=== PATIENT | male | born 1985 | race Caucasian/White ===

== ENCOUNTER 2024-08-20 08:57 | Emergency (ER) | payer OTHER ==
[~2024-08-20] VITALS: Ht 180.3 cm; Wt 94.1 kg
[2024-08-20] MEDS ORDERED: GABA-284 PO (09:14)
[2024-08-20] MEDS: PERCOCET 5MG/325MG TAB PO ONE (10:53)
[2024-08-20] MEDS: UNRESOLVED CLARIFICATION ENTRY XX STA (11:03)
[2024-08-20] MEDS ORDERED: METH-1164 PO (11:57)
[2024-08-20 12:06] VITALS: BP 144/88; TEMP 98.1; O2SAT 96
== END 2024-08-20 12:07 | disposition home or self-care (01) ==
LOC: M ED 08:57
DX: S29.011A Strain of muscle and tendon of front wall of thorax, initial encounter (principal); Y92.39 Other specified sports and athletic area as the place of occurrence of the external cause; Y93.9 Activity, unspecified; Y99.9 Unspecified external cause status; Z91.048 Other nonmedicinal substance allergy status; Z79.899 Other long term (current) drug therapy

== ENCOUNTER → 2024-08-21 | Outpatient (CLI) | payer OTHER ==
[~2024-08-21] MED LIST: GABA-284 PO; METH-1164 PO
== END ==
LOC: M PLAIMG 08:38
PROVIDERS: ATTEND Physician Assistant
DX: S29.011A Strain of muscle and tendon of front wall of thorax, initial encounter (principal); W18.30XA Fall on same level, unspecified, initial encounter; Y92.009 Unspecified place in unspecified non-institutional (private) residence as the place of occurrence of the external cause

== ENCOUNTER 2024-09-25 06:07 | Day surgery (SDC) | payer OTHER ==
[~2024-09-25] VITALS: Ht 180.3 cm; Wt 91.2 kg
[~2024-09-25 06:07] MED LIST changes: +ACET500T15 PO; +MOTR200T44 PO; +NEUR100C PO; +ROPIvacaine 0.5% 30ML VIAL PN ONE
[2024-09-25] MEDS ORDERED: NS 1,000 ML IV SCH (06:25)
[2024-09-25] MEDS ORDERED: ROPIvacaine 0.5% 30ML VIAL PN ONE (07:20)
[2024-09-25] MEDS ORDERED: propofoL 200 MG/20 ML VIAL As Ordered ONE (07:29)
[2024-09-25] MEDS ORDERED: fentaNYL 100 MCG/2 ML INJECTION As Ordered ONE (07:29)
[2024-09-25] MEDS ORDERED: MIDAZOLAM INJ 2MG/2ML VIAL As Ordered ONE (07:29)
[2024-09-25] MEDS ORDERED: ROCURONIUM BROMIDE 50MG/5ML VIAL As Ordered ONE (07:29)
[2024-09-25] MEDS ORDERED: ONDANSETRON 4MG 2ML VIAL As Ordered ONE (07:29)
[2024-09-25] MEDS ORDERED: dexmedeTOMIDine (4MCG/ML)200MCG/50ML BTL (PRECEDEX) As Ordered ONE (07:37)
[2024-09-25] MEDS: ceFAZolin SOD 2 GM in IV 1 EA IV ONE (07:55)
[2024-09-25] MEDS: TRANEXAMIC ACID 100 MG/ML 10ML VIAL IV ONE (08:00)
[2024-09-25] MEDS ORDERED: ACETAMINOPHEN 1000MG 100ML IV BAG As Ordered ONE (08:13)
[2024-09-25] MEDS ORDERED: PHENYLephrine 500MCG 5ML (100MCG/ML) SYRINGE As Ordered ONE (08:28)
[2024-09-25] MEDS ORDERED: ePHEDrine SULFATE 25 MG/5 ML(5MG/ML) SYRINGE As Ordered ONE (08:35)
[2024-09-25] MEDS ORDERED: HYDROmorphone HCL 2MG/ML 1ML VIAL As Ordered ONE (09:16)
[2024-09-25] MEDS ORDERED: SUGAMMADEX SODIUM 500 MG/5 ML VIAL (BRIDION) As Ordered ONE (09:20)
[2024-09-25] MEDS: TRANEXAMIC ACID 100 MG/ML 10ML VIAL As Ordered ONE (09:37)
[2024-09-25] MEDS: VANCOMYCIN 1000MG/20ML VIAL As Ordered ONE (09:38)
[2024-09-25] MEDS: LIDOCAINE W/EPINEPHRINE 1% 20ML VIAL As Ordered ONE (11:12)
[2024-09-25] MEDS ORDERED: NS 250 ML IV SCH ×2 (11:15→11:19)
[2024-09-25] MEDS ORDERED: ONDANSETRON 4MG 2ML VIAL IV PRN (11:15)
[2024-09-25] MEDS ORDERED: KETOROLAC 60MG 2ML VIAL As Ordered ONE (11:47)
[2024-09-25] MEDS: fentaNYL 100 MCG/2 ML INJECTION IV PRN (11:55)
[2024-09-25] MEDS: oxyCODONE 5MG TAB PO PRN (12:01)
[2024-09-25] MEDS: HYDROMORPHONE HCL 0.5 MG/ 0.5 ML SYRINGE IV PRN (12:01)
[2024-09-25 12:50] VITALS: BP 137/89; TEMP 97.1; O2SAT 96
== END 2024-09-25 13:09 | disposition home or self-care (01) ==
LOC: M SDC 06:07
PROVIDERS: ATTEND Orthopaedic Surgery
DX: S29.011A Strain of muscle and tendon of front wall of thorax, initial encounter (principal); X50.0XXA Overexertion from strenuous movement or load, initial encounter; Y93.9 Activity, unspecified; Y92.9 Unspecified place or not applicable; Z91.048 Other nonmedicinal substance allergy status
CPT/HCPCS: 24341; C1713; J0131; J0690; J1100; J1171; J1885; J2250; J2371; J2405; J3010; J3370

== ENCOUNTER 2025-02-26 06:29 | Day surgery (SDC) | payer OTHER ==
[~2025-02-26] VITALS: Ht 180.3 cm; Wt 86.2 kg
[~2025-02-26 06:29] MED LIST changes: +GLYCOPYRROLATE INJ 0.2 MG/ML 2 ML VIAL As Ordered ONE; +KETOROLAC 30 MG/ML 1ML VIAL As Ordered ONE; +LIDOCAINE 2% 100MG/5ML SDV (FOR ANES.) As Ordered ONE; +MIDAZOLAM INJ 2MG/2ML VIAL As Ordered ONE; +ONDANSETRON 4MG 2ML VIAL As Ordered ONE; +ROCURONIUM BROMIDE 50MG/5ML VIAL As Ordered ONE; -ROPIvacaine 0.5% 30ML VIAL PN ONE; +SUGAMMADEX SODIUM 500 MG/5 ML VIAL (BRIDION) As Ordered ONE; +fentaNYL 100 MCG/2 ML INJECTION As Ordered ONE; +propofoL 200 MG/20 ML VIAL As Ordered ONE
[2025-02-26] MEDS ORDERED: LR 1,000 ML IV SCH ×2 (06:35→11:20)
[2025-02-26] MEDS: ROPIvacaine 0.5% 30ML VIAL PN ONE (07:05)
[2025-02-26] MEDS: dexAMETHasone 10MG/1ML VIAL PRES.FREE PN ONE (07:05)
[2025-02-26] MEDS: LIDOCAINE 1% SDV 5ML VIAL PN ONE (07:05)
[2025-02-26] MEDS: fentaNYL 100 MCG/2 ML INJECTION IV PRN (07:15)
[2025-02-26] MEDS: MIDAZOLAM INJ 2MG/2ML VIAL IV PRN (07:15)
[2025-02-26] MEDS: ceFAZolin SOD 2 GM IV ONCE IV ONE (08:00)
[2025-02-26] MEDS: TRANEXAMIC ACID 100 MG/ML 10ML VIAL As Ordered ONE (08:00)
[2025-02-26] MEDS: VANCOMYCIN 1000MG/20ML VIAL As Ordered ONE (08:52)
[2025-02-26] MEDS: LIDOCAINE W/EPINEPHRINE 1% 20ML VIAL As Ordered ONE (10:15)
[2025-02-26] MEDS: EPINEPHrine 1MG/ML INJ 30ML MD-VIAL As Ordered ONE (10:21)
[2025-02-26] MEDS ORDERED: fentaNYL 100 MCG/2 ML INJECTION IV PRN (11:20)
[2025-02-26] MEDS: oxyCODONE 5MG TAB PO PRN (11:57)
[2025-02-26] MEDS: ONDANSETRON 4MG 2ML VIAL IV PRN (11:57)
[2025-02-26] MEDS: HYDROMORPHONE HCL 0.5 MG/ 0.5 ML SYRINGE IV PRN (11:58)
[2025-02-26 12:40] VITALS: BP 120/73; TEMP 97.4; O2SAT 96
== END 2025-02-26 13:20 | disposition home or self-care (01) ==
LOC: M SDC 06:29
PROVIDERS: ATTEND Orthopaedic Surgery
DX: M24.412 Recurrent dislocation, left shoulder (principal); M19.012 Primary osteoarthritis, left shoulder; Z91.048 Other nonmedicinal substance allergy status; Z88.3 Allergy status to other anti-infective agents
CPT/HCPCS: 23120; 29806; C1713; J0171; J0665; J0690; J1100; J1171; J1596; J1885; J2250; J2405; J2795; J3010; J3370

== ENCOUNTER → 2025-07-02 | Outpatient (REF) | payer OTHER ==
[~2025-07-02] MED LIST changes: -GLYCOPYRROLATE INJ 0.2 MG/ML 2 ML VIAL As Ordered ONE; -KETOROLAC 30 MG/ML 1ML VIAL As Ordered ONE; -LIDOCAINE 2% 100MG/5ML SDV (FOR ANES.) As Ordered ONE; -MIDAZOLAM INJ 2MG/2ML VIAL As Ordered ONE; -ONDANSETRON 4MG 2ML VIAL As Ordered ONE; -ROCURONIUM BROMIDE 50MG/5ML VIAL As Ordered ONE; -SUGAMMADEX SODIUM 500 MG/5 ML VIAL (BRIDION) As Ordered ONE; -fentaNYL 100 MCG/2 ML INJECTION As Ordered ONE; -propofoL 200 MG/20 ML VIAL As Ordered ONE
== END ==
LOC: M SMT 13:11
PROVIDERS: ATTEND Urology
DX: Z30.2 Encounter for sterilization (principal)